=== PATIENT | female | born 1975 | race Caucasian/White ===

== ENCOUNTER 2018-07-13 12:00 | Inpatient (IN) | payer OTHER ==
[~2018-07-13] VITALS: Ht 175.3 cm; Wt 71.7 kg
[2018-07-13] MEDS ORDERED: SYNTHROID112 MCG PO (14:14)
[2018-07-21] MEDS ORDERED: ULTRACET PO (08:36)
[2018-07-21] MEDS ORDERED: COLACE100 MG PO (08:37)
[2018-07-21] MEDS ORDERED: DICLOFENAC SODI50 MG PO (08:37)
== END 2018-07-21 09:49 | DRG 743 ==
LOC: SURH 12:00 → O/R 07-20 05:26 → SURH 07-20 07:00 → OB/GYN 07-20 22:26
PROVIDERS: Obstetrics & Gynecology
PROC: 0UT24ZZ Resection of Bilateral Ovaries, Percutaneous Endoscopic Approach (ICD-10-PCS; 2018-07-20)
PROC: 0UT74ZZ Resection of Bilateral Fallopian Tubes, Percutaneous Endoscopic Approach (ICD-10-PCS; 2018-07-20)
PROC: 0USG4ZZ Reposition Vagina, Percutaneous Endoscopic Approach (ICD-10-PCS; 2018-07-20)
PROC: 0UT94ZZ Resection of Uterus, Percutaneous Endoscopic Approach (ICD-10-PCS; principal; 2018-07-20 07:00)
DX: N92.0 Excessive and frequent menstruation with regular cycle (principal); N80.0 Endometriosis of uterus

== ENCOUNTER 2021-05-27 16:55 | Emergency (ER) | payer OTHER ==
[~2021-05-27] VITALS: Ht 175.3 cm; Wt 73.9 kg
[~2021-05-27 16:55] MED LIST: COLACE100 MG PO; DICLOFENAC SODI50 MG PO; SYNTHROID112 MCG PO; ULTRACET PO
[2021-05-27] MEDS ORDERED: SYNTHROID137 MCG (17:24)
== END 2021-05-27 22:53 | disposition home or self-care (01) ==
LOC: ER 16:55
DX: R10.31 Right lower quadrant pain (principal); R53.1 Weakness
CPT/HCPCS: 74177; Q9965